=== PATIENT | male | born 1985 | race Two or more races ===

== ENCOUNTER 2018-02-12 13:55 | Outpatient (CLI) | payer SELFPAY | END 2018-02-12 23:59 | disposition home or self-care (01) | LOC: MSC 13:55 | PROVIDERS: ATTEND Anesthesiology | DX: M54.12 Radiculopathy, cervical region (principal); M75.82 Other shoulder lesions, left shoulder; M25.512 Pain in left shoulder; M60.9 Myositis, unspecified; M54.5 Low back pain; V49.9XXD Car occupant (driver) (passenger) injured in unspecified traffic accident, subsequent encounter; Y92.89 Other specified places as the place of occurrence of the external cause ==